=== PATIENT | male | born 1980 | race Caucasian/White ===

== ENCOUNTER 2023-06-05 20:01 | Emergency (ER) | payer OTHER, SELFPAY ==
[2023-06-05 20:02] VITALS: BP 135/77; PULSE 71; RESP 18; TEMP 36.8; O2SAT 98; BMI 32.7
--- NOTE | 2023-06-05 20:03 | ED.LOWEXIN ---
HPI - Extremity Injury (Lower) General Chief Complaint: Extremity Injury, Lower Stated Complaint: L knee injury, punctured it with nail at work. Time Seen by Provider: 06/05/23 22:54 Source: patient, RN notes reviewed and old records reviewed Mode of arrival: wheelchair Limitations: no limitations History of Present Illness HPI Narrative: 42-year-old male presents for evaluation of left knee pain. Patient reports that his symptoms started around midnight this morning about 23 hours prior to evaluation He reports that he was at work when he ?slipped on something in my left knee hit a wooden Pallet. He states that his left knee hit a nail but it was the flat top of the nail not the sharp bottom part of the nail He reports that his tetanus is up-to-date He states that he had initial swelling which has improved Denies any twisting injuries, just the force trauma. Related Data Allergies Allergy/AdvReac Type Severity Reaction Status Date / Time No Known Allergies Allergy Verified 06/05/23 20:07 Review of Systems Constitutional: Constitutional: Denies headache(s) Eyes: Eyes: Denies blurry vision ENT: Denies headache(s) Cardiovascular: Cardiovascular: Denies chest pain and Denies dyspnea Respiratory: Respiratory: Denies cough and Denies dyspnea Musculoskeletal: Musculoskeletal: Reports arthralgias, Reports joint swelling and Reports limited range of motion Neurologic: Denies headache(s) PMFSH Social History Social History Advance Directives: No Advance Directives Information Provided: No Physical Exam Vital Signs: Vital Signs: Last Vital Signs Temp 98.2 F 06/05/23 20:02 Pulse 71 06/05/23 20:02 Resp 18 06/05/23 20:02 BP 135/77 06/05/23 20:02 Pulse Ox 98 06/05/23 20:02 O2 Del Method Room Air 06/05/23 20:02 BMI result Body Mass Index 32.7 Const: General: healthy appearing, comfortable, no acute distress, alert and awake Nutritional Appearance: well nourished Orientation/consciousness: patient oriented x3 HEENT: Head: Yes normocephalic and Yes atraumatic Eyes: Eyelids: Yes eyelids normal Conjunctivae: conjunctivae normal Sclerae: sclerae normal Corneas: corneas normal Pupils: Equal, round and reactive pupils present EOM: EOMs intact bilaterally Neck: Neck: Yes full ROM Resp: Effort & Inspection: normal respiratory effort, able to speak in complete sentences and not labored Skin: General skin exam: elasticity normal Neuro: General: patient oriented x3 Cranial nerves: Yes Equal, round and reactive pupils present and Yes Bilaterally intact EOM present Cognition (Neuro): normal cognition Extrem: Other: Patient does have a small abrasion to the left patella. No deep lacerations noted No significant visible bony deformity to the left knee. No significant edema noted on exam. No calf tenderness Patient has positive left valgus strain Course Course Course Narrative: RME: 42 yo M w/ no PMHx presenting to the ED c/o L knee injury s/p falling on broken pallet that also had delon nail on it early this AM at work. Tetanus UTD. denies head trauma or LOC. has been minimally ambulatory since L knee w/o swelling and superficial abrasion. +diffusely ttp. no erythema/warmth. NV intact distally XR ordered Full HPI, ROS and PE to be performed by primary ED provider. Medical Decision Making Medical Decision Making [facility] Narrative: Patient appears to have a minor knee injury. He denies any twisting injury, so there is a lower suspicion for ligamentous injury. X-ray is negative for fracture we does have a small joint effusion. This was discussed with the patient. He will be given crutches and discharged to follow-up with his PCP Differential Diagnosis Differential Diagnoses: The differential diagnosis associated with the presentation includes Knee sprain Knee contusion Ligamentous injury Abrasion Independent Interpretation I performed an independent interpretation of an: Plain X-Ray (No obvious fracture of the left knee) Radiology Impression Discussion of test interpretation with radiology: I have reviewed the radiologist's reading. Radiologist Impression: No acute visible fracture or dislocation. Mild narrowing of the lateral femoral tibial compartment. Small knee joint effusion Discharge Plan Discharge Clinical Impression: Knee pain, left Patient Disposition: Home, Self-Care Instructions: Knee Pain (ED) Additional Instructions: Your x-ray was negative for fracture. You do have a small amount of fluid in your left knee joint You may ice the area and elevate above your heart to help reduce swelling Use ibuprofen/Tylenol for pain Follow-up with your primary doctor Stand Alone Forms: Work/School Release
== END 2023-06-06 00:04 | disposition home or self-care (01) ==
PROVIDERS: Emergency Provider Internal Medicine
DX: M25.562 Pain in left knee (principal); S80.912A Unspecified superficial injury of left knee, initial encounter; W01.198A Fall on same level from slipping, tripping and stumbling with subsequent striking against other object, initial encounter; Y93.89 Activity, other specified; Y92.89 Other specified places as the place of occurrence of the external cause; Y99.0 Civilian activity done for income or pay
CPT/HCPCS: 73562; 99282; 99283